=== PATIENT | female | born 1990 | race Caucasian/White ===

== ENCOUNTER → 2022-06-25 16:40 | Outpatient (CLI) | payer OTHER, SELFPAY | PROVIDERS: Visit Provider Physician Assistant | DX: R30.0 Dysuria (principal); M54.9 Dorsalgia, unspecified | CPT/HCPCS: 87086 ==

== ENCOUNTER → 2022-06-25 17:21 | Outpatient (CLI) | payer OTHER, SELFPAY ==
[2022-06-25 18:17] LABS: BUN Creatinine Ratio 18.8 (6-22); Blood Urea Nitrogen 15 mg/dL (7-17); Calcium 9.4 mg/dL (8.4-10.2); Carbon Dioxide 32 mmol/L (22-32); Chloride 99 mmol/L (98-107); Estimated Glomerular Filt Rate > 60 mL/min (>60); Glucose 86 mg/dL (70-100); HEMOLYSIS < 15 (0-50); Potassium 3.8 mmol/L (3.4-5.1); Sodium 136 mmol/L (137-145)
== END ==
PROVIDERS: Referring Provider Physician Assistant; Visit Provider Physician Assistant
DX: R10.9 Unspecified abdominal pain (principal)
CPT/HCPCS: 36415; 80048

== ENCOUNTER 2022-06-25 17:37 | Emergency (ER) | payer OTHER, SELFPAY ==
[2022-06-25 17:40] VITALS: BP 145/88; PULSE 69; RESP 16; TEMP 36.4; O2SAT 99; BMI 32.9
[2022-06-25 17:42] VITALS: PULSE 87
--- NOTE | 2022-06-25 17:42 | ED_ITS ---
HPI - Abdominal Pain <Lopez Christie PA-C - Last Filed: 06/25/22 19:33> General Chief Complaint: Abdominal Pain Stated Complaint: severe pn in lt side/groin area Time Seen by Provider: 06/25/22 17:40 History of Present Illness HPI narrative: This is a 31-year-old female presents to the emergency department complaining of acute onset left lower quadrant pain onset yesterday. Patient does not recall any abnormal behaviors that would cause the pain. She states that the pain is a constant sharp pain to her left lower quadrant. She states the pain initially began in her left lumbar area and wrapped around to her front. She reports some mild nausea but no vomiting, fevers, or any other symptoms. She denies any vaginal discharge or bleeding. Patient says she was seen in the walk-in clinic and advised to come here for further evaluation of the pain continues. Related Data Previous Rx's Medication Instructions Recorded fluticasone propionate 50 1 spray intranasal Q12H #16 grams 06/13/22 mcg/actuation nasal spray,suspension (Flonase Allergy Relief) tamsulosin 0.4 mg capsule 0.4 mg PO DAILY #14 caps 06/25/22 Allergies Allergy/AdvReac Type Severity Reaction Status Date / Time No Known Drug Allergies Allergy Unverified 06/25/22 16:39 Review of Systems <Lopez Christie PA-C - Last Filed: 06/25/22 19:33> Review of Systems Narrative: GENERAL: Denies chills, fatigue, malaise, fever, sweats. HEENT: Denies sinus pain, ear pain, sore throat, difficulty swallowing, dizziness. RESPIRATORY: Denies dyspnea, cough, wheezing, hemoptysis, sputum. CARDIOVASCULAR: Denies chest pain, palpitations, orthopnea, edema, GASTROINTESTINAL: Reports left lower quadrant pain and nausea : Denies dysuria, frequency, incontinence, hematuria, urinary retention. MUSCULOSKELETAL: denies weakness, joint pain, or bony pain SKIN: Denies rash, skin lesions, or other NEUROLOGIC: Denies weakness, headache, numbness, change in speech, confusion, seizures, incoordination. PSYCHIATRIC: No concerning psychosocial issues. Back: Left flank pain 12 point review of systems is negative except for those stated above Patient History <FLASH Cole Last Filed: 06/25/22 19:33> Social History Smoking Status: Never smoker Smoking Status: Never smoker Exam <Lopez Christie PA-C - Last Filed: 06/25/22 19:33> Narrative Exam Narrative: GENERAL: Well-developed patient, in mild distress. HEAD: Atraumatic. Normocephalic. EYES: Pupils equal round and reactive. Extraocular motions intact. No scleral icterus. No injection or drainage. ENT: Nose without bleeding, purulent drainage. Throat without erythema, tonsillar hypertrophy or exudate. Airway patent. NECK: Trachea midline. Non tender CARDIOVASCULAR: Regular rate and rhythm without murmurs, gallops, or rubs. RESPIRATORY: Clear to auscultation. Breath sounds equal bilaterally. No wheezes, rales, or rhonchi. GASTROINTESTINAL: Left lower quadrant tenderness to palpation, nondistended EXTREMITIES: No edema or joint tenderness. BACK: Left CVA tenderness to palpation NEURO: AOx3. SKIN: No rash or erythema of visible areas Initial Vital Signs Initial Vital Signs: Vital Signs Temperature 97.5 F L 06/25/22 17:40 Pulse Rate 69 06/25/22 17:40 Respiratory Rate 16 06/25/22 17:40 Blood Pressure 145/88 H 06/25/22 17:40 Pulse Oximetry 99 06/25/22 17:40 Oxygen Delivery Method Room Air 06/25/22 17:40 <Griffin Talavera DO - Last Filed: 06/25/22 20:23> Initial Vital Signs Initial Vital Signs: Vital Signs Temperature 97.5 F L 06/25/22 17:40 Pulse Rate 69 06/25/22 17:40 Respiratory Rate 16 06/25/22 17:40 Blood Pressure 145/88 H 06/25/22 17:40 Pulse Oximetry 99 06/25/22 17:40 Oxygen Delivery Method Room Air 06/25/22 17:40 Course <Lopez Christie PA-C - Last Filed: 06/25/22 19:33> Orders Ordered: ED Orders 06/25/22 17:00 Test Urine Stat 06/25/22 17:52 US pelvic complete Stat 06/25/22 18:23 CT abdomen pelvis wo con Stat 06/25/22 18:42 Complete Blood Count AUTO DIFF Stat Lipase Stat Vital Signs Vital signs: Vital Signs - 8 hr 06/25/22 17:40 06/25/22 17:42 06/25/22 17:43 Temperature 97.5 F L Pulse Rate 69 87 Respiratory Rate 16 Blood Pressure 145/88 H 145/88 H Pulse Oximetry 99 Oxygen Delivery Method Room Air 06/25/22 17:43 06/25/22 18:00 06/25/22 18:00 Temperature Pulse Rate 69 68 Respiratory Rate Blood Pressure 147/81 H Pulse Oximetry 99 100 Oxygen Delivery Method Room Air 06/25/22 18:30 06/25/22 18:30 Temperature Pulse Rate 62 Respiratory Rate Blood Pressure 158/88 H Pulse Oximetry 99 Oxygen Delivery Method Room Air <Griffin Talavera DO - Last Filed: 06/25/22 20:23> Orders Ordered: ED Orders 06/25/22 17:00 Test Urine Stat 06/25/22 17:52 US pelvic complete Stat 06/25/22 18:23 CT abdomen pelvis wo con Stat 06/25/22 18:42 Complete Blood Count AUTO DIFF Stat Lipase Stat Vital Signs Vital signs: Vital Signs - 8 hr 06/25/22 17:40 06/25/22 17:42 06/25/22 17:43 Temperature 97.5 F L Pulse Rate 69 87 Respiratory Rate 16 Blood Pressure 145/88 H 145/88 H Pulse Oximetry 99 Oxygen Delivery Method Room Air 06/25/22 17:43 06/25/22 18:00 06/25/22 18:00 Temperature Pulse Rate 69 68 Respiratory Rate Blood Pressure 147/81 H Pulse Oximetry 99 100 Oxygen Delivery Method Room Air 06/25/22 18:30 06/25/22 18:30 Temperature Pulse Rate 62 Respiratory Rate Blood Pressure 158/88 H Pulse Oximetry 99 Oxygen Delivery Method Room Air MDM - Abdominal Pain <Lopez Christie PA-C - Last Filed: 06/25/22 19:33> Lab Data 06/25/22 18:42 Labs: Lab Results 06/25/22 06/25/22 06/25/22 Range/Units 17:00 18:42 18:42 WBC 7.9 (4.5-11.0) X10^3/uL RBC 4.61 (4.0-5.2) X10^6/uL Hgb 13.6 (12.0-16.0) g/dL Hct 39.8 (36-46) % MCV 86.2 (80-100) fL MCH 29.4 (26-34) PG MCHC 34.1 (30-36) % RDW 14.2 (11.6-14.8) % Plt Count 361 (150-400) X10^3/uL Neut % (Auto) 66.0 (50-75) % Lymph % (Auto) 24.6 L (25-40) % [place] % (Auto) 5.6 (3-14) % Eos % (Auto) 2.6 (2-4) % Baso % (Auto) 1.2 (0-2) % Neut # (Auto) 5200 (5249-2134) /uL Lymph # (Auto) 2000 (4494-0724) /uL [place] # (Auto) 400 (0-900) /uL Eos # (Auto) 200 (0-450) /uL Baso # (Auto) 100 (0-100) /uL Lipase 85 (23-300) U/L Urine Test Negative (Negative) Imaging Data CT scan - abdomen/pelvis: Radiologist's Impression: [place] [address] CT Scan Report Signed Patient: Elisabet Alford MR#: [id number] : 1990 Acct:[id number] Age/Sex: 31 / F Date of Service: 06/25/22 Loc: ED Accession Number: [id number] ?? Procedure: CT abdomen pelvis wo con Ordering Provider: Lopez Christie P.A-C PROCEDURE:? CT ABDOMEN PELVIS WO CON ? INDICATIONS:? LLQ pain ? TECHNIQUE:? Noncontrast 5 mm thick sections acquired from the diaphragms to the symphysis.? 5 mm coronal and sagittal reformats were then performed.? For radiation dose reduction, the following was used:? automated exposure control, adjustment of mA and/or kV according to patient size.? ? COMPARISON:? None. ? FINDINGS:? Image quality:? Excellent.? ? ABDOMEN:? Lung bases:? Lung bases are clear.? Heart size is normal.? ? Solid organs:? Liver is normal in size.? Gallbladder is normal.? Pancreas is normal in contours.? Spleen is normal in size.? No adrenal nodules.? Kidneys are normal in size, without hydronephrosis or nephrolithiasis.? ? Peritoneum and bowel:? Unenhanced bowel loops demonstrate normal wall thickness and caliber.? No free fluid or air.? ? Nodes and vessels:? No retroperitoneal or mesenteric adenopathy by size criteria.? Aorta and inferior vena cava are normal in caliber.? ? Miscellaneous:? No ventral hernias.? ? ? PELVIS:? Genitourinary:? Bladder wall thickness is normal.? ? Miscellaneous:? No inguinal hernias or adenopathy.? ? Bones:? No suspicious bony lesions.? No vertebral body compression fractures.? ? IMPRESSION:? No acute abnormality of the abdomen or pelvis. ? ? Dictated by: Kash Gutiérrez M.D. on 06/25/2022 at 19:00 ? ? Approved by: Kash Gutiérrez M.D. on 06/25/2022 at 19:04 ? US - [employer]: Radiologist's Impression: [place] [address] Ultrasound Report Signed Patient: Elisabet Alford MR#: [id number] : 1990 Acct:[id number] Age/Sex: 31 / F Date of Service: 06/25/22 Loc: ED Accession Number: [id number] ?? Procedure: US pelvic complete Ordering Provider: Lopez Christie P.A-C PROCEDURE:? US PELVIC COMPLETE ? INDICATIONS:? LLQ PAIN ? TECHNIQUE:? Real-time scanning was performed of the pelvic organs, with image documentation.? Additional endovaginal scanning was necessary due to incomplete visualization of the adnexal and endometrial structures by transabdominal scanning.? ? COMPARISON:? None. ? FINDINGS:? ?? Uterus:? Uterus is anteverted and normal in size at 8.1 x 3.4 x 4.2 cm. The myometrium is homogeneous. ? The endometrium measures 5 mm combined thickness.? ? Ovaries:? The right ovary was not visualized.? The left ovary measures 3.2 x 1.3 x 1.7 cm, with a calculated ovarian volume of 3.7 cc. The ovaries have a normal sonographic appearance.? Less than 12 follicles are visualized in the left ovary.? No adnexal masses are seen. ? Other:? No pathologic free abdominal or pelvic fluid. ? ? IMPRESSION:? 1. No acute abnormality of the pelvis. 2. The right ovary is not visualized.? The left ovary is normal.? We strive to produce accurate, complete, and clear reports of imaging services. To assist us in improving patient care, this report was composed using standard report templates and voice recognition software. Therefore, it may contain abnormal punctuation, insertions and/or omissions. Occasional wrong-word or sound-alike substitutions may occur. Though we review the report and make efforts to correct it, we do recommend that the report be read carefully in proper context to recognize any text inaccuracies. ? ? Dictated by: Kash Gutiérrez M.D. on 06/25/2022 at 18:50 ? ? Approved by: Kash Gutiérrez M.D. on 06/25/2022 at 18:52 ? MDM Narrative Medical decision making narrative: MDM * differential diagnosis includes but not limited to ovarian torsion, ovarian cyst, diverticulitis, kidney stone, pancreatitis * Prior records reviewed: Patient was seen today at the walk-in clinic complain ing of low back pain on the right side. Also has some urinary discomfort. Per though the exam was concerning for a left-sided kidney stone as the pain was described as a pain going from her upper left back to her lower back to wrapping around the front and described as sharp and stabbing. * My lab interpretation: Lab work showed no significant abnormalities. No blood in urine and no evidence of UTI on UA. No leukocytosis or other signs of infection. * My imgaing interpretation: Pelvic ultrasound normal and no evidence of any kind left ovarian abnormality. CT abdomen and pelvis was also unremarkable, no evidence diverticulitis, kidney stones, or any other acute pathology. * Clinical Decision Rules/Scores evaluated: None * Independent discussions with: None ED Course: This is a 31-year-old female presents to the emergency department complaining of worsening acute on chronic left lower quadrant pain. She states that the pain has been affecting her for years but it is worsened over the last week causing her to come to the emergency department. Patient was sent here from the walk-in clinic due to concerns for possible kidney stone. Pelvic ultrasound was initially ordered which showed no abnormalities and no ovarian or abnormalities. test was negative. All lab work unremarkable. UA negative for any kind of UTI. CT abdomen and pelvis showed no explanation for the left lower quadrant pain. Patient did state that the pain began in the left lumbar area after she may have pulled her muscle while lifting at work and this maybe some kind of radiating referred pain. Low suspicion for any kind of life- threatening pathology at this time. Recommended she follow up with primary care provider if symptoms continue. Shared Decision Making: Discussed plan with patient who is comfortable with the plan. Social Considerations: None Disposition: Discharged to home <Griffin Talavera DO - Last Filed: 06/25/22 20:23> Lab Data Labs: Lab Results 06/25/22 06/25/22 06/25/22 Range/Units 17:00 18:42 18:42 WBC 7.9 (4.5-11.0) X10^3/uL RBC 4.61 (4.0-5.2) X10^6/uL Hgb 13.6 (12.0-16.0) g/dL Hct 39.8 (36-46) % MCV 86.2 (80-100) fL MCH 29.4 (26-34) PG MCHC 34.1 (30-36) % RDW 14.2 (11.6-14.8) % Plt Count 361 (150-400) X10^3/uL Neut % (Auto) 66.0 (50-75) % Lymph % (Auto) 24.6 L (25-40) % [place] % (Auto) 5.6 (3-14) % Eos % (Auto) 2.6 (2-4) % Baso % (Auto) 1.2 (0-2) % Neut # (Auto) 5200 (1430-0747) /uL Lymph # (Auto) 2000 (6456-1637) /uL [place] # (Auto) 400 (0-900) /uL Eos # (Auto) 200 (0-450) /uL Baso # (Auto) 100 (0-100) /uL Lipase 85 (23-300) U/L Urine Test Negative (Negative) Discharge Plan Departure Patient Disposition: Home Clinical Impression: Abdominal pain Instructions: DI for Abdominal Pain-Adult, DI for Abdominal Muscle Strain Activity Restrictions/Additional Instructions: Thank you for coming to the [facility] Emergency Department today. As we discussed your pelvic ultrasound was unremarkable. Your there is no abnormalities with your left ovary. The CT abdomen and pelvis also would check for any kind of kidney stone which shows no evidence of. Urinalysis was also negative for any kind of UTI. Your lab work was also unremarkable and showed no evidence of infection. As we discussed I have recommended follow up with the primary care provider as they will be able to more complete testing to determine the cause of your pain. I hope you feel better soon. Prescriptions: No Action fluticasone propionate [Flonase Allergy Relief] 50 mcg/actuation spray,suspension 1 spray intranasal Q12H Qty: 16 0RF Rx Instructions: administer into each nostril tamsulosin 0.4 mg capsule 0.4 mg PO DAILY Qty: 14 0RF Rx Instructions: This may cause dizziness and low blood pressure Referrals: Miscellaneous,Doctor, [Primary Care Provider] - Stand Alone Forms: Patient Portal/API <Griffin Talavera DO - Last Filed: 06/25/22 20:23> Cosign ED Attending Cosignature Attestation: Dr Talavera Co-Sign Statement: I was available for consultation during this patient's emergency department visit. This chart is signed by myself for administrative purposes only. I did not have direct contact with this patient during this visit. They were seen independently by the APC.
[2022-06-25 17:43] VITALS: BP 145/88; PULSE 69; O2SAT 99
--- NOTE | 2022-06-25 17:52 | DI.US.S_ITS ---
PROCEDURE: US PELVIC COMPLETE INDICATIONS: LLQ PAIN TECHNIQUE: Real-time scanning was performed of the pelvic organs, with image documentation. Additional endovaginal scanning was necessary due to incomplete visualization of the adnexal and endometrial structures by transabdominal scanning. COMPARISON: None. FINDINGS: Uterus: Uterus is anteverted and normal in size at 8.1 x 3.4 x 4.2 cm. The myometrium is homogeneous. The endometrium measures 5 mm combined thickness. Ovaries: The right ovary was not visualized. The left ovary measures 3.2 x 1.3 x 1.7 cm, with a calculated ovarian volume of 3.7 cc. The ovaries have a normal sonographic appearance. Less than 12 follicles are visualized in the left ovary. No adnexal masses are seen. Other: No pathologic free abdominal or pelvic fluid. IMPRESSION: 1. No acute abnormality of the pelvis. 2. The right ovary is not visualized. The left ovary is normal. We strive to produce accurate, complete, and clear reports of imaging services. To assist us in improving patient care, this report was composed using standard report templates and voice recognition software. Therefore, it may contain abnormal punctuation, insertions and/or omissions. Occasional wrong-word or sound-alike substitutions may occur. Though we review the report and make efforts to correct it, we do recommend that the report be read carefully in proper context to recognize any text inaccuracies. Dictated by: Kash Gutiérrez M.D. on 06/25/2022 at 18:50 Approved by: Kash Gutiérrez M.D. on 06/25/2022 at 18:52
[2022-06-25 18:00] VITALS: BP 147/81; PULSE 68; O2SAT 100
[2022-06-25 18:09] LABS: Pregnancy Test Urine Negative (Negative)
--- NOTE | 2022-06-25 18:23 | DI.CT.S_ITS ---
PROCEDURE: CT ABDOMEN PELVIS WO CON INDICATIONS: LLQ pain TECHNIQUE: Noncontrast 5 mm thick sections acquired from the diaphragms to the symphysis. 5 mm coronal and sagittal reformats were then performed. For radiation dose reduction, the following was used: automated exposure control, adjustment of mA and/or kV according to patient size. COMPARISON: None. FINDINGS: Image quality: Excellent. ABDOMEN: Lung bases: Lung bases are clear. Heart size is normal. Solid organs: Liver is normal in size. Gallbladder is normal. Pancreas is normal in contours. Spleen is normal in size. No adrenal nodules. Kidneys are normal in size, without hydronephrosis or nephrolithiasis. Peritoneum and bowel: Unenhanced bowel loops demonstrate normal wall thickness and caliber. No free fluid or air. Nodes and vessels: No retroperitoneal or mesenteric adenopathy by size criteria. Aorta and inferior vena cava are normal in caliber. Miscellaneous: No ventral hernias. PELVIS: Genitourinary: Bladder wall thickness is normal. Miscellaneous: No inguinal hernias or adenopathy. Bones: No suspicious bony lesions. No vertebral body compression fractures. IMPRESSION: No acute abnormality of the abdomen or pelvis. Dictated by: Kash Gutiérrez M.D. on 06/25/2022 at 19:00 Approved by: Kash Gutiérrez M.D. on 06/25/2022 at 19:04
[2022-06-25 18:30] VITALS: BP 158/88; PULSE 62; O2SAT 99
[2022-06-25 18:59] LABS: Add Manual Diff / Slide Review NO; Basophils Absolute Auto 100 /uL (0-100); Basophils Percent Auto 1.2 % (0-2); Eosinophils Absolute Auto 200 /uL (0-450); Eosinophils Percent Auto 2.6 % (2-4); Hematocrit 39.8 % (36-46); Hemoglobin 13.6 g/dL (12.0-16.0); Lymphocytes Absolute Auto 2000 /uL (1100-4500); Lymphocytes Percent Auto 24.6 % (25-40); Mean Corpuscular HGB Conc 34.1 % (30-36); Mean Corpuscular Hemoglobin 29.4 PG (26-34); Mean Corpuscular Volume 86.2 fL (80-100); Monocytes Absolute Auto 400 /uL (0-900); Monocytes Percent Auto 5.6 % (3-14); Neutrophils Absolute Auto 5200 /uL (1500-7000); Platelet Count 361 X10^3/uL (150-400); Red Blood Cell Count 4.61 X10^6/uL (4.0-5.2); Red Cell Distribution Width 14.2 % (11.6-14.8); White Blood Cell Count 7.9 X10^3/uL (4.5-11.0)
[2022-06-25 19:07] LABS: Lipase 85 U/L (23-300)
== END 2022-06-25 19:34 | disposition home or self-care (01) ==
PROVIDERS: Emergency Provider Physician Assistant Medical
DX: R10.32 Left lower quadrant pain (principal); R30.0 Dysuria; M54.9 Dorsalgia, unspecified
CPT/HCPCS: 36415; 74176; 76830; 76856; 80048; 81025; 83690; 85025; 87086; 99283; 99284

== ENCOUNTER 2022-11-04 14:12 | Emergency (ER) | payer OTHER, SELFPAY ==
[2022-11-04] VITALS (9 sets, daily range): BP systolic 136–152; BP diastolic 89; PULSE 71–81; RESP 16–18; TEMP 36.7; O2SAT 92–99; BMI 31.1
[2022-11-04] MEDS: diphenhydrAMINE 25 MG TABLET 50 MG PO (14:30)
[2022-11-04] MEDS: FAMOTIDINE 20 MG TABLET 40 MG PO (14:30)
[2022-11-04] MEDS: predniSONE 20 MG TABLET 60 MG PO (14:48)
--- NOTE | 2022-11-04 14:59 | ED_ITS ---
HPI - Allergic Reaction <Ravin Singer PA-C - Last Filed: 11/04/22 16:21> General Chief complaint: Allergic Reaction Stated complaint: allergic reaction, throat/eye swelling Time Seen by Provider: 11/04/22 14:40 Source: patient Mode of arrival: Ambulatory History of Present Illness HPI narrative: 32-year-old female with seasonal allergies and no other past medical history presents to the ED status post an allergic reactions sustained just prior to arrival. Patient works in a warehouse, experienced a sudden onset of lip swelling, itchy andwatery eyes, facial rash, facial itching, itchy throat. Patient denies throat swelling, tongue swelling, throat tightness, trouble breathing, chest pain, wheezing, nausea, vomiting, abdominal pain. Patient states that she is not aware of anything specific that she is allergic to Other than environmental allergies. Patient states that she took some Alexia prior to arrival. Related Data Previous Rx's Medication Instructions Recorded prednisone 20 mg tablet 40 mg PO DAILY 5 days #10 tabs 11/04/22 Allergies Allergy/AdvReac Type Severity Reaction Status Date / Time ethinyl estradiol Allergy Sneezing Verified 11/04/22 14:44 [From [facility]ale (91)] levonorgestrel Allergy Sneezing Verified 11/04/22 14:44 [From Seasonale (91)] Review of Systems <Ravin Singer PA-C - Last Filed: 11/04/22 16:21> Review of Systems ROS Unobtainable: All systems reviewed & are unremarkable except as noted in HPI and below Constitutional Constitutional: Denies chills, Denies fatigue, Denies fever(s), Denies frequent falls, Denies lethargy and Denies weakness Eyes Eyes: Denies change in vision, Denies eye discharge, Denies irritation, Reports itchy eyes and Denies loss of vision Comments: Itchy, watery eyes ENT Ears, Nose, Mouth, and Throat: Denies change in voice, Denies dizziness, Reports lip swelling, Denies neck pain, Denies sore throat and Denies throat swelling Comments: itchy throat Cardiovascular Cardiovascular: Denies chest pain, Denies irregular heart rhythm, Denies lightheadedness, Denies palpitations, Denies dyspnea, Denies dyspnea on exertion and Denies orthopnea Respiratory Respiratory: Denies cough, Denies dyspnea, Denies dyspnea on exertion and Denies wheezing Gastrointestinal Gastrointestinal: Denies abdominal pain, Denies change in bowel habits, Denies diarrhea, Denies nausea and Denies vomiting Genitourinary Genitourinary: Denies hematuria, Denies flank pain, Denies urinary incontinence and Denies urinary urgency Musculoskeletal Musculoskeletal: Denies back pain, Denies muscle weakness, Denies neck pain, Denies numbness and Denies tingling Integumentary/Breasts Skin/Breast: Denies pruritus, Denies erythema, Reports rash and Denies wounds Neurologic Neurologic: Denies behavioral changes, Denies confusion, Denies dizziness, Denie s frequent falls, Denies loss of vision, Denies numbness, Denies tingling and Denies weakness Psychiatric Psychiatric: Denies anxiety, Denies behavioral changes, Denies confusion, Denies depression, Denies homicidal ideation and Denies suicidal ideation Endocrine Endocrine: Denies fatigue, Denies flushing and Denies palpitations Hematologic/Lymphatic Hematologic/Lymphatic: Denies easy bruising Allergic/Immunologic Allergic/Immunologic: Denies urticaria, Reports itchy eyes, Reports lip swelling, Denies throat swelling and Denies wheezing Patient History <Ravin Singer PA-C - Last Filed: 11/04/22 16:21> Social History Smoking Status: Never smoker Smoking Status: Never smoker Substance Use Type: does not use Exam <Ravin Singer PA-C - Last Filed: 11/04/22 16:21> Narrative Exam Narrative: Const General:?cooperative, healthy appearing and comfortable [facility] Head:?normal to inspection Ears:?hearing grossly normal bilaterally Nose:?external nose normal Face and sinus:?normal facial exam and sinuses nontender Mouth:?oral mucosae normal; lower lip appears mildly swollen; no tongue swelling Throat:?posterior oropharynx normal; airways patent Eyes General:?appearance normal, both eyes and all related structures Neck Neck:?normal visual inspection and no lymphadenopathy noted Resp Effort & Inspection:?normal respiratory effort Auscultation:?clear to auscultation bilaterally; no wheezing Cardio Rate:?regular rate Rhythm:?regular rhythm GI abdomen is soft, nondistended, nontender to palpation. Integumentary erythematous rash on face, primarily around the eyes and the mouth Neuro General:?patient alert, patient awake and patient oriented x3 Initial Vital Signs Initial Vital Signs: Vital Signs Temperature 98.1 F 11/04/22 14:37 Pulse Rate 71 11/04/22 14:37 Respiratory Rate 18 11/04/22 14:37 Blood Pressure 152/89 H 11/04/22 14:37 Pulse Oximetry 96 11/04/22 14:37 Oxygen Delivery Method Room Air 11/04/22 14:37 <Shaneka Simpson DO - Last Filed: 11/05/22 08:25> Initial Vital Signs Initial Vital Signs: Vital Signs Temperature 98.1 F 11/04/22 14:37 Pulse Rate 71 11/04/22 14:37 Respiratory Rate 18 11/04/22 14:37 Blood Pressure 152/89 H 11/04/22 14:37 Pulse Oximetry 96 11/04/22 14:37 Oxygen Delivery Method Room Air 11/04/22 14:37 Course <Ravin Singer PA-C - Last Filed: 11/04/22 16:21> Orders Ordered: Discontinued Medications Diphenhydramine HCl (Diphenhydramine 25 Mg Tablet) 50 mg PO NOW ONE Stop: 11/04/22 14:19 Last Admin: 11/04/22 14:30 Dose: 50 mg Documented By: RB Famotidine (Famotidine 20 Mg Tablet) 40 mg PO NOW ONE Stop: 11/04/22 14:21 Last Admin: 11/04/22 14:30 Dose: 40 mg Documented By: DONTAE Prednisone (Prednisone 20 Mg Tablet) 60 mg PO NOW ONE Stop: 11/04/22 14:46 Last Admin: 11/04/22 14:48 Dose: 60 mg Documented By: DONTAE Vital Signs Vital signs: Vital Signs - 8 hr 11/04/22 14:37 11/04/22 14:52 11/04/22 15:44 Temperature 98.1 F Pulse Rate 71 81 Respiratory Rate 18 16 Blood Pressure 152/89 H Pulse Oximetry 96 94 98 Oxygen Delivery Method Room Air Room Air <DO Marlo Calloway Last Filed: 11/05/22 08:25> Orders Ordered: Discontinued Medications Diphenhydramine HCl (Diphenhydramine 25 Mg Tablet) 50 mg PO NOW ONE Stop: 11/04/22 14:19 Last Admin: 11/04/22 14:30 Dose: 50 mg Documented By: RB Famotidine (Famotidine 20 Mg Tablet) 40 mg PO NOW ONE Stop: 11/04/22 14:21 Last Admin: 11/04/22 14:30 Dose: 40 mg Documented By: RB Prednisone (Prednisone 20 Mg Tablet) 60 mg PO NOW ONE Stop: 11/04/22 14:46 Last Admin: 11/04/22 14:48 Dose: 60 mg Documented By: RB Vital Signs Vital signs: Vital Signs - 8 hr 11/04/22 14:37 11/04/22 14:52 11/04/22 15:44 Temperature 98.1 F Pulse Rate 71 81 Respiratory Rate 18 16 Blood Pressure 152/89 H Pulse Oximetry 96 94 98 Oxygen Delivery Method Room Air Room Air MDM - Allergic Reaction <Ravin Singer PA-C - Last Filed: 11/04/22 16:21> MDM Narrative Medical decision making narrative: 32-year-old female with seasonal allergies and no other past medical history presents to the ED status post an allergic reactions sustained just prior to arrival. Concern for acute allergic reaction. Reassuring that patient is not wheezing, no throat tightness or throat swelling, no GI symptoms. Less concern for anaphylaxis. Will treat as an acute allergic reaction with Benadryl, Pepcid, prednisone. Will reassess. Patient's symptoms improved significantly with the medications. Discharged home with recommendation to continue prednisone, Benadryl, Pepcid. ED return precautions were discussed with patient. Patient verbalized understanding. Medical records reviewed: yes Discharge Plan Departure Patient Disposition: Home Clinical Impression: Allergic reaction Instructions: DI for General Allergic Reactions Activity Restrictions/Additional Instructions: You were evaluated in the ED today for an allergic reaction. Your symptoms improved well with prednisone, Benadryl, Pepcid AC. You may continue taking Benadryl, Pepcid AC, prednisone for the next few days. Return to the ED if you experience Worsening symptoms, tongue swelling, throat swelling, shortness of breath, chest pain. Prescriptions: New prednisone 20 mg tablet 40 mg PO DAILY 5 Days Qty: 10 0RF Referrals: Miscellaneous,Doctor, [Primary Care Provider] - Stand Alone Forms: Patient Portal/API <Shaneka Simpson DO - Last Filed: 11/05/22 08:25> Cosign ED Attending [place] Attestation: I was immediately available in the department for consultation. Documentation has been reviewed.
== END 2022-11-04 16:23 | disposition home or self-care (01) ==
PROVIDERS: Emergency Provider Student in an Organized Health Care Education/Training Program
DX: T78.40XA Allergy, unspecified, initial encounter (principal)
CPT/HCPCS: 99283; A9270

== ENCOUNTER → 2023-05-13 07:27 | Outpatient (CLI) | payer OTHER, SELFPAY ==
[2023-05-13 08:28] LABS: Influenza A - CEPHEID Flu A NEGATIVE (NEGATIVE); Influenza B - CEPHEID Flu B NEGATIVE (NEGATIVE); Respiratory Syncytial Virus Negative (Negative)
[2023-05-13 08:33] LABS: COVID-19 CEPHEID 4-PLEX PCR Negative (Negative)
== END ==
PROVIDERS: Visit Provider Physician Assistant Surgical
DX: R05.1 Acute cough (principal)
CPT/HCPCS: 0241U